=== PATIENT | female | born 1975 | race Asian ===

== ENCOUNTER 2017-04-21 14:34 | Outpatient (CLI) | payer OTHER ==
--- NOTE | 2017-04-21 15:38 | MMO ---
BILATERAL MAMMOGRAMS: HISTORY: Screening mammography. COMPARISON: Baseline study. FINDINGS: Heterogeneously dense fibroglandular tissue is again demonstrated. Global asymmetry within the left breast is noted. There is no new dominant mass or suspicious calcifications. The study was evaluated with the assistance of computer-aided detection. IMPRESSION: BI-RADS category 2. Benign findings. Suggest routine followup. POS: [facility]
== END 2017-04-21 14:35 | disposition home or self-care (01) ==
LOC: SCSMAMMO 14:34
PROVIDERS: ATTEND Family Medicine
DX: Z12.31 Encounter for screening mammogram for malignant neoplasm of breast (principal)
CPT/HCPCS: 77067; G0202